=== PATIENT | male | born 1960 | race Caucasian/White ===

== ENCOUNTER 2024-06-02 06:51 | Inpatient (IN) | payer MEDICARE, MEDICAID ==
[~2024-06-02] VITALS: Ht 180.3 cm; Wt 97.5 kg
[2024-06-02] MEDS: IV NS 0.9% 1,000 ML BAG IV ONE (07:00)
[2024-06-02] MEDS ORDERED: VANCOMYCIN 1 GM /D5W 250 ML PB IV ONE (07:05)
[2024-06-02] MEDS ORDERED: CEFEPIME 1 GM VIAL ONE (07:05)
[2024-06-02] MEDS: CEFEPIME 1 GM in IV D5W 50 ML IV ONE (07:12)
[2024-06-02 07:25] LABS: BASOPHILS % (AUTO) 0.8 % (0.0-2.0); EOSINOPHILS # (AUTO) 0.3 K/uL (0.0-0.7); EOSINOPHILS % (AUTO) 10.1 % (0.0-6.0); HEMATOCRIT 41 % (39-51); HEMOGLOBIN 13.8 g/dL (13.5-17.5); MEAN CORPUSCULAR HEMOGLOBIN 32 PG (26.0-33.0); MEAN CORPUSCULAR HGB CONC 34 g/dl (31.0-36.0); MEAN CORPUSCULAR VOLUME 93 fL (80-96); MONOCYTES # (AUTO) 0.3 K/uL (0.1-1.30); MONOCYTES % (AUTO) 9.8 % (2.0-12.0); NEUTROPHILS # (AUTO) 1.7 K/uL (1.8-8.9); NEUTROPHILS % (AUTO) 49.3 % (43.0-81.0); PLATELET COUNT (AUTO) 158 K/uL (150-450); RED BLOOD CELL COUNT(AUTO) 4.38 MIL/uL (4.5-6.0); RED CELL DISTRIBUTION WIDTH 13.5 % (11.5-15.0); WHITE BLOOD COUNT (AUTO) 3.4 K/uL (4.3-11.0)
[2024-06-02 07:36] LABS: CALCIUM, SERUM 8.6 mg/dL (8.5-10.1); CARBON DIOXIDE 27 mmol/L (21-32); CHLORIDE 106 mmol/L (98-107); GLUCOSE 91 mg/dL (74-106); POTASSIUM 3.8 mmol/L (3.5-5.1); SODIUM SERUM 141 mmol/L (136-145); UREA NITROGEN, BLOOD 15 mg/dL (7-18)
[2024-06-02 07:42] LABS: ALANINE AMINOTRANSFERASE 30 U/L (12-78); ALBUMIN 3.8 g/dL (3.4-5.0); ALKALINE PHOSPHATASE 104 U/L (46-116); ASPARTATE AMINOTRANSFERASE 20 U/L (15-37); BILIRUBIN,DIRECT 0.1 mg/dL (0.0-0.2); BILIRUBIN,TOTAL 0.5 mg/dL (0.2-1.0); TOTAL PROTEIN, SERUM 6.6 g/dL (6.4-8.2)
[2024-06-02] MEDS: VANCOMYCIN 1 GM in IV D5W 250 ML IV ONE (07:43)
[2024-06-02 07:44] LABS: LACTIC ACID 1.1 mmol/L (0.4-2.0)
[2024-06-02 07:51] LABS: INR 1.07 (0.91-1.10); PARTIAL THROMBOPLASTIN TIME 23.1 SEC (24.3-34.3); PROTHROMBIN TIME 11.3 SECS (9.2-11.1)
[2024-06-02] MEDS ORDERED: CETI-467 PO (08:31)
[2024-06-02] MEDS ORDERED: RISP1TAB7 PO (08:31)
[2024-06-02] MEDS ORDERED: ASPI-1169 PO (08:31)
[2024-06-02] MEDS ORDERED: GABA600T12 PO (08:31)
[2024-06-02] MEDS ORDERED: VALA500T PO (08:31)
[2024-06-02] MEDS ORDERED: DUTA0.5C PO (08:31)
[2024-06-02] MEDS ORDERED: ESCI20TA PO (08:31)
[2024-06-02] MEDS ORDERED: ATOR20TA PO (08:31)
[2024-06-02 10:26] LABS: APPEARANCE,URINE CLEAR (CLEAR); BILIRUBIN,URINE NEGATIVE (NEGATIVE); BLOOD, URINE NEGATIVE Ery/uL (NEGATIVE); COLOR,URINE STRAW (YELLOW); KETONES,URINE NEGATIVE (NEGATIVE); LEUKOCYTE ESTERASE ,URINE NEGATIVE (NEGATIVE); NITRITE, URINE NEGATIVE (NEGATIVE); PH,URINE 6.5 (5.0-8.0); PROTEIN,URINE NEGATIVE (NEGATIVE); UGLUCOSE NEGATIVE (NEGATIVE); UROBILINOGEN,URINE 0.2 EU/dL (0.2)
[2024-06-02] MEDS ORDERED: MAGNESIUM HYDROXIDE 30 ML UDC PO PRN (10:30)
[2024-06-02] MEDS ORDERED: MAG HYDROX/AL HYDROX/SIMETH 30 ML UDC PO PRN (10:30)
[2024-06-02] MEDS ORDERED: Z GUARD REMEDY 4 OZ OINT TP PRN (10:30)
[2024-06-02] MEDS ORDERED: ONDANSETRON HCL/PF 4 MG/2 ML VIAL IVP PRN (10:30)
[2024-06-02] MEDS ORDERED: ACETAMINOPHEN 325 MG TABLET PO PRN (10:30)
[2024-06-02 13:12] VITALS: O2SAT 99
[2024-06-02 13:36] VITALS: BP 132/67; TEMP 97.2
[2024-06-02] MEDS: IV NS 0.9% 1,000 ML IV PRN (14:58)
[2024-06-02 16:00] VITALS: BP 119/76; TEMP 97.3; O2SAT 99
[2024-06-02] MEDS: ESCITALOPRAM OXALATE (10 MG) 10 MG TABLET PO SCH (16:08)
[2024-06-02 20:00] VITALS: BP 118/82; TEMP 97.9; O2SAT 98
[2024-06-03] VITALS: BP 114/73; TEMP 98.4; O2SAT 95
[2024-06-03 04:00] VITALS: BP 135/72; TEMP 97.5; O2SAT 96
[2024-06-03 06:44] LABS: BASOPHILS % (AUTO) 0.4 % (0.0-2.0); EOSINOPHILS # (AUTO) 0.3 K/uL (0.0-0.7); HEMATOCRIT 39 % (39-51); LYMPHOCYTES # (AUTO) 0.9 K/uL (0.8-4.8); LYMPHOCYTES % (AUTO) 18.9 % (20.0-44.0); MEAN CORPUSCULAR HEMOGLOBIN 32 PG (26.0-33.0); MEAN CORPUSCULAR HGB CONC 34 g/dl (31.0-36.0); MEAN CORPUSCULAR VOLUME 94 fL (80-96); MONOCYTES # (AUTO) 0.4 K/uL (0.1-1.30); MONOCYTES % (AUTO) 8.7 % (2.0-12.0); NEUTROPHILS # (AUTO) 3.3 K/uL (1.8-8.9); PLATELET COUNT (AUTO) 142 K/uL (150-450); RED BLOOD CELL COUNT(AUTO) 4.11 MIL/uL (4.5-6.0); RED CELL DISTRIBUTION WIDTH 13.5 % (11.5-15.0)
[2024-06-03 07:19] LABS: CALCIUM, SERUM 8.8 mg/dL (8.5-10.1); CREATININE 0.8 mg/dL (0.6-1.3); PHOSPHORUS 3.2 mg/dL (2.5-4.9)
[2024-06-03] MEDS: ASPIRIN 81 MG TAB.CHEW PO SCH (08:44)
[2024-06-03] MEDS: GABAPENTIN 300 MG CAPSULE PO SCH (08:44)
[2024-06-03 08:45] VITALS: BP 137/81; TEMP 97.5; O2SAT 100
[2024-06-03] MEDS: VALACYCLOVIR HCL 500 MG TABLET PO SCH (08:45)
[2024-06-03] MEDS: risperiDONE 1 MG TABLET PO SCH (08:45)
[2024-06-03 12:18] VITALS: BP 121/74; TEMP 97.7; O2SAT 98
[2024-06-03 16:38] VITALS: BP 114/78; TEMP 98.1; O2SAT 96
[2024-06-03 20:00] VITALS: BP 119/79; TEMP 97.7; O2SAT 97
[2024-06-04] VITALS: BP 127/68; TEMP 97.3; O2SAT 95
[2024-06-04 04:00] VITALS: BP 129/67; TEMP 97.3; O2SAT 97
== END 2024-06-04 12:56 | disposition home or self-care (01) | DRG 641 ==
LOC: ER 07:00 → TELE 13:03 → MED 06-04 12:49
PROVIDERS: ADMIT Internal Medicine; ATTEND Internal Medicine
DX: E86.0 Dehydration (principal); F84.0 Autistic disorder; I95.89 Other hypotension; R29.6 Repeated falls; E66.9 Obesity, unspecified; E78.5 Hyperlipidemia, unspecified; I25.10 Atherosclerotic heart disease of native coronary artery without angina pectoris; Z79.82 Long term (current) use of aspirin; Z95.5 Presence of coronary angioplasty implant and graft; I34.0 Nonrheumatic mitral (valve) insufficiency; Z68.30 Body mass index [BMI] 30.0-30.9, adult
CPT/HCPCS: 36415; 70450-TC; 71045-TC; 80048-TC; 80076-TC; 83605-TC; 83735-TC; 84100-TC; 84484-TC; 85025-TC; 85730-TC; 87040-TC; 93307-TC; 97110-TC; 97116-TC; 97530-TC; A4223; G0378; J0692; J3370; J7030; J7060